=== PATIENT | male | born 1985 | race Caucasian/White ===

== ENCOUNTER 2023-08-02 22:52 | Emergency (ER) | payer BC ==
[2023-08-02 23:02] VITALS: BP 153/92; PULSE 89
== END 2023-08-02 23:22 | disposition home or self-care (01) ==
LOC: JD.ED 22:52
DX: F10.120 Alcohol abuse with intoxication, uncomplicated (principal); F17.210 Nicotine dependence, cigarettes, uncomplicated
CPT/HCPCS: 99284